=== PATIENT | male | born 1960 | race Caucasian/White ===

== ENCOUNTER → 2021-02-16 17:30 | Outpatient (CLI) | payer OTHER, SELFPAY ==
--- NOTE | ~2021-02-16 | XR_ITS ---
EXAMINATION: XR shoulder RT min 2V DATE: 02/16/2021 18:57 INDICATION: Right shoulder pain TECHNIQUE: AP internally and externally rotated, AP oblique externally rotated and axillary views of the right shoulder were obtained. COMPARISON: None FINDINGS: Normal alignment. No fracture. Advanced right glenohumeral osteoarthritis with remodeling of the hum eral head and posterior glenoid. Moderate acromioclavicular osteoarthritis. Soft tissues are unremark able. Visualized portions of the right lung are clear. IMPRESSION: Advanced right glenohumeral osteoarthritis. Reviewed, dictated and finalized at location A. GENCY ROOM NURSE
== END ==
PROVIDERS: PCP Family Medicine Adolescent Medicine; Visit Provider Family Medicine Adolescent Medicine
DX: M19.011 Primary osteoarthritis, right shoulder (principal)
CPT/HCPCS: 73030

== ENCOUNTER 2021-04-02 00:38 | Day surgery (SDC) | payer OTHER, SELFPAY ==
[2021-03-19 11:32] VITALS: BMI 40.1
[2021-04-02 08:06] VITALS: BP 168/93; PULSE 66; RESP 18; TEMP 36.6; O2SAT 99; BMI 38.9
[2021-04-02] MEDS: LACTATED RINGERS 1,000 ML 150 ML IV CONT (08:18)
[2021-04-02 08:24] LABS: Glucose Point of Care 125 mg/dl (65-105)
--- NOTE | 2021-04-02 08:31 | P.PNAN_ITS ---
Anes - Initial Pre Proc Eval Procedure: Operation Date: 04/02/21 09:00 Proposed Procedures p Screening Colonoscopy - Hayden Jason MD Date/Time: 04/02/21 08:31 Surgeon: Hayden Jason MD Pre Op Diagnosis: neoplasm screening Patient Data Age: 60 Gender: M Height: 1.85 m Weight: 134.1 kg Last Vital Signs Temp 36.6 C 04/02/21 08:06 Pulse 66 04/02/21 08:06 Resp 18 04/02/21 08:06 BP 168/93 H 04/02/21 08:06 Pulse Ox 99 04/02/21 08:06 Allergies Allergy/AdvReac Type Severity Reaction Status Date / Time No Known Allergies Allergy Mild Verified 03/19/21 11:31 Home Medications Medication Instructions Recorded Confirmed Type bfvdzrlype-ziguspjqx-dadlxwicb 1 tablet PO DAILY 03/14/21 03/14/21 History [Exforge HCT] meloxicam 1 tablet PO DAILY 03/14/21 03/14/21 History metformin 1 tablet PO QID 03/14/21 03/14/21 History Laboratory Tests 04/02/21 08:20 POC Capillary Glucose 125 mg/dl H mg/dl (65-105) Patient hx anesthesia problems: none Family hx anesthesia problems: none Results Review: All pre-operative results and documents have been reviewed as part of the pre-operative evaluation. [facility] Past Medical History Medical History (Updated 03/14/21 @ 08:55 by Tyler Bustillos MD) Degenerative arthritis of right shoulder region Diabetes History of dental problems HTN (hypertension) Primary osteoarthritis of right ankle 04/30/2016 Wears glasses Family History Family History Other Cerebrovascular accident Social History Social History Smoking status: Never smoker Substance use: never Substance use type: does not use Living arrangements: with family Spiritual care concerns: No Anes - Eval Final PreProcedure Day of Procedure 04/02/21 08:31 Patient weight: obese Heart: regular rate and rhythm Lungs: clear to auscultation Airway: Mallampati scale class II and special considerations poor dentition Neurological: alert and oriented Last oral intake: >/= 8 hours ASA classification: III Emergent: no Anesthetic plan: proceed Anesthesia type and monitoring: general GIVS and standard monitoring Results Review: All pre-operative results and documents have been reviewed as part of the pre-operative evaluation. Informed Consent: The patient's anesthetic plan and its attendant risks and benefits were discussed with the patient/family/POA. Questions were solicited and answers provided to the satisfaction of the patient/family/POA.
--- NOTE | 2021-04-02 08:46 | P.CONGI_ITS ---
Assessment and Plan Assessment and plan (1) Encounter for screening colonoscopy: Code(s): Z12.11 - Encounter for screening for malignant neoplasm of colon Status: Acute Assessment and Plan: Patient presents for screening colonoscopy. Family history is significant his mother had colon polyps. Further recommendations will be given after endoscopy. (2) Family history of colonic polyps: Code(s): Z83.71 - Family history of colonic polyps Status: Acute Assessment and Plan: Patient's mother had colon polyps. Plan is for surveillance colonoscopy at intervals in the future. GI Consult Note Consult date/time: 04/02/21 08:46 HPI: David Johnston is a 60 year old male Presents for screening colonoscopy. Patient's current weight appetite and bowel movements are normal. He denies abdominal pain. He has had no bleeding. Family history is significant his mother was identified as having colon polyps. Review of Systems Review of Systems: All systems reviewed & are unremarkable except as noted in HPI and below PMFSH Past Medical History Medical History (Updated 04/02/21 @ 08:48 by Hayden Jason MD) Degenerative arthritis of right shoulder region Diabetes History of dental problems HTN (hypertension) Primary osteoarthritis of right ankle 04/30/2016 Wears glasses Family History Family History Other Cerebrovascular accident Social History Social History Smoking status: Never smoker Substance use: never Substance use type: does not use Living arrangements: with family Spiritual care concerns: No Meds Home Medications and Allergies Home Medications Medication Instructions Recorded Confirmed Type uksruciibz-ddelnxnbm-abdyhrstn 1 tablet PO DAILY 03/14/21 03/14/21 History [Exforge HCT] meloxicam 1 tablet PO DAILY 03/14/21 03/14/21 History metformin 1 tablet PO QID 03/14/21 03/14/21 History Allergies Allergy/AdvReac Type Severity Reaction Status Date / Time No Known Allergies Allergy Mild Verified 03/19/21 11:31 Vital Signs Vital Signs - 24 hr 04/02/21 08:06 Temperature 97.9 F Pulse Rate 66 Respiratory Rate 18 Blood Pressure 168/93 H Pulse Oximetry 99 Exam Narrative: Physical exam reveals patient to be alert. Vital signs stable. HEENT exam is unremarkable. Patient is anicteric. Lungs are clear to ausc ultation and percussion. Heart is without murmur or extra sounds. Abdominal exam bowel sounds are present soft nontender with no organomegaly. Digital external rectal exam is normal.
[2021-04-02 09:14] VITALS: BP 101/58; PULSE 68; RESP 25; O2SAT 96
[2021-04-02 09:24] VITALS: BP 124/80; PULSE 61; RESP 22; O2SAT 96
[2021-04-02 09:34] VITALS: BP 140/87; PULSE 59; RESP 18; O2SAT 97
== END 2021-04-02 09:40 | disposition home or self-care (01) ==
PROVIDERS: PCP Family Medicine Adolescent Medicine; Visit Provider Internal Medicine Gastroenterology
PROC: 0DJD8ZZ Inspection of Lower Intestinal Tract, Via Natural or Artificial Opening Endoscopic (ICD-10-PCS; CPT 45378; principal; 2021-04-02 09:00)
DX: Z12.11 Encounter for screening for malignant neoplasm of colon (principal); K64.8 Other hemorrhoids; Z83.71 Family history of colonic polyps; E11.9 Type 2 diabetes mellitus without complications; I10 Essential (primary) hypertension; M19.071 Primary osteoarthritis, right ankle and foot; Z79.84 Long term (current) use of oral hypoglycemic drugs; E66.9 Obesity, unspecified; Z68.39 Body mass index [BMI] 39.0-39.9, adult
CPT/HCPCS: 45378; 82948; J2704; J7120